=== PATIENT | female | born 1980 ===

== ENCOUNTER 2018-01-22 19:39 | Emergency (ER) | payer OTHER ==
[2018-01-22] MEDS ORDERED: Morphine 4 MG/ML VIAL ONE (20:33)
--- NOTE | 2018-01-22 20:42 | C.PDOC ---
History Of Present Illness 38 year old female with history of biliary colic presents to the ED for evaluation of sudden epigastric pain associated with nausea and vomiting that started 1 hour ago. Reports she is currently breast feeding. Denies fever, trauma, diarrhea, and any other associated symptoms. Time Seen by Provider: 01/22/18 20:15 Chief Complaint (Nursing): Abdominal Pain History Per: Patient History/Exam Limitations: no limitations Onset/Duration Of Symptoms: Hrs Current Symptoms Are (Timing): Still Present Associated Symptoms: Nausea, Vomiting Past Medical History Reviewed: Historical Data, Nursing Documentation, Vital Signs Vital Signs: Last Vital Signs Temp 97.8 F 01/22/18 19:49 Pulse 82 01/22/18 19:49 Resp 18 01/22/18 19:49 BP 132/79 01/22/18 19:49 Pulse Ox 99 01/22/18 19:49 Family History: States: Unknown Family Hx - Social History Hx Alcohol Use: No Hx Substance Use: No - Immunization History Hx Tetanus Toxoid Vaccination: Yes Hx Influenza Vaccination: No Hx Pneumococcal Vaccination: No Review Of Systems Except As Marked, All Systems Reviewed And Found Negative. Constitutional: Negative for: Fever, Chills Gastrointestinal: Positive for: Nausea, Vomiting, Abdominal Pain (epigastric ). Negative for: Diarrhea Physical Exam - Physical Exam Appears: Non-toxic Skin: Normal Color, Warm, Dry Head: Atraumatic, Normacephalic Eye(s): bilateral: PERRL Oral Mucosa: Moist Neck: Normal ROM, Supple Chest: Symmetrical, No Deformity Cardiovascular: Rhythm Regular, No Murmur Respiratory: No Other (no acute respiratory distress) Gastrointestinal/Abdominal: Soft, No Tenderness, No Distention, No Guarding, No Rebound, Other (+Barnhart's Sign. scar is almost completely healed.) Extremity: Normal ROM (x4), No Deformity Neurological/Psych: Oriented x3, Normal Speech, Normal Motor, Normal Sensation Gait: Steady ED Course And Treatment - Laboratory Results Result Diagrams: 01/22/18 20:41 01/22/18 20:54 Lab Interpretation: Abnormal (AST 246, ALT 142, Alk Phos 213, TBili 0.5, Amylase 146H) Urine POC: Negative O2 Sat by Pulse Oximetry: 99 (RA) Pulse Ox Interpretation: Normal Reevaluation Time: 23:54 Reassessment Condition: Improved - Physician Consult Information Outcome Of Conversation: 2300 and 2350: d/w Stamp Classifier, pt with Biliary Colic and Pancreatitis (low grade). declines surgical admission, recommends adm to [facility]. 2400: d/w [facility]- Dr. Jeanette mireles to admit. Medical Decision Making Medical Decision Making: Plan: --Blood sent. --Urinalysis --Urine HCG --Given Morphine and Toradol. biliary colic with LFT's with obstrutive picture, mild pancreatitis. may have passed a stone. consider elective colecystectomy when LFT's normalize Disposition Doctor Will See Patient In The: Hospital Counseled Patient/Family Regarding: Studies Performed, Diagnosis - Disposition Disposition: HOSPITALIZED Disposition Time: 23:56 Condition: GOOD Forms: [email or web address] [facility] (Burkinan) - Clinical Impression Clinical Impression: Abdominal pain, Recurrent biliary colic - Scribe Statement The provider has reviewed the documentation as recorded by the Scribe (Candy Guzman) Provider Attestation: All medical record entries made by the Scribe were at my direction and personally dictated by me. I have reviewed the chart and agree that the record accurately reflects my personal performance of the history, physical exam, medical decision making, and the department course for this patient. I have also personally directed, reviewed, and agree with the discharge instructions and disposition.
[2018-01-22 20:45] LABS: BASO # 0.1 K/uL (0.0-0.2); BASO % 0.7 % (0.0-2.0); EOS # 0.1 K/uL (0.0-0.7); EOS % 0.9 % (0.0-4.0); HEMOGLOBIN 15.1 g/dL (11.0-16.0); LYMPH # 2.1 K/uL (1.0-4.3); LYMPH % 15.9 % (20.0-40.0); MEAN CELL VOLUME 86.9 fL (81.0-99.0); MEAN CORPUSCULAR HEMOGLOBIN 29.5 pg (27.0-31.0); MEAN CORPUSCULAR HGB CONC 33.9 g/dL (33.0-37.0); MONO # 0.5 K/uL (0.0-0.8); NEUT # 10.1 K/uL (1.8-7.0); NEUT % 78.5 % (50.0-75.0); RBC 5.13 Mil/uL (3.80-5.20); RED CELL DISTRIBUTION WIDTH 15.6 % (11.5-14.5); WHITE BLOOD COUNT 12.9 K/uL (4.8-10.8)
[2018-01-22 21:09] LABS: ALB/GLOB RATIO 1.3 (1.0-2.1); ALT/SGPT 142 U/L (9-52); AMYLASE 146 U/L (30-110); AST/SGOT 246 U/L (14-36); BLOOD UREA NITROGEN 21 mg/dL (7-17); CALCIUM 9.4 mg/dl (8.6-10.4); GFR NON-AFRICAN AMERICAN > 60; LIPASE 253 U/L (23-300)
[2018-01-22 23:01] LABS: HCG,QUALITATIVE URINE NEGATIVE (NEGATIVE)
[2018-01-22 23:02] LABS: SQUAMOUS EPITHIAL < 1 /hpf (0-5); URINE BILIRUBIN NEGATIVE (NEGATIVE); URINE CLARITY Clear (Clear); URINE COLOR Yellow (YELLOW); URINE GLUCOSE (UA) NORMAL (Normal); URINE LEUKOCYTE ESTERASE TRACE Leu/uL (Negative); URINE PROTEIN NEGATIVE (NEGATIVE); URINE UROBILINOGEN NORMAL mg/dL (0.2-1.0)
[2018-01-22 23:10] LABS: URINE BLOOD TRACE (NEGATIVE)
[2018-01-22] MEDS ORDERED: Iodixanol 320 MG/ML 100 ML BOTTLE IV ONE (23:14)
[2018-01-23] MEDS: Dextrose 5%/0.45% NS 1,000 ML IV SCH ×2 (00:54→09:40)
[2018-01-23 01:02] VITALS: O2SAT 98
[2018-01-23 03:19] VITALS: RESP 20
--- NOTE | 2018-01-23 08:06 | CT ---
Date of service: 2018-01-22 23:23:40 PROCEDURE: CT Abdomen and Pelvis without intravenous contrast HISTORY: Epigastric pain COMPARISON: Ultrasound dated 01/22/2018. TECHNIQUE: Multiple contiguous axial images were performed through the abdomen and pelvis with the use of intravenous contrast. Subsequently, sagittal and coronal reformatted images were obtained. Radiation dose: Total exam DLP = 236 mGy-cm. This CT exam was performed using one or more of the following dose reduction techniques: Automated exposure control, adjustment of the mA and/or kV according to patient size, and/or use of iterative reconstruction technique. FINDINGS: LOWER THORAX: 6 millimeter calcified granuloma in the right posterior sulcus. LIVER: Unremarkable. No gross lesion or ductal dilatation. GALLBLADDER AND BILE DUCTS: Unremarkable. Cholelithiasis seen on ultrasound was not well appreciated on CT scan. PANCREAS: Unremarkable. No gross lesion or ductal dilatation. Clinical correlation if there is persistent concern for early acute pancreatitis. SPLEEN: Unremarkable. Splenule. ADRENALS: Unremarkable. No mass. KIDNEYS AND URETERS: Unremarkable. No hydronephrosis. No solid mass. VASCULATURE: Unremarkable. No aortic aneurysm. BOWEL: Unremarkable. No obstruction. No gross mural thickening. APPENDIX: No findings to suggest acute appendicitis. PERITONEUM: Unremarkable. No free fluid. No free air. LYMPH NODES: Unremarkable. No enlarged lymph nodes. BLADDER: Unremarkable. REPRODUCTIVE: Heterogeneous uterus and endometrium. BONES: Degenerative changes in the spine. OTHER FINDINGS: None. IMPRESSION: Negative acute. Additional findings as above. These findings were preliminarily reported at 11:44 p.m. on 01/22/[address] Durga Henry from [facility].
[2018-01-23 08:21] LABS: BASO # 0.1 K/uL (0.0-0.2); BASO % 0.7 % (0.0-2.0); EOS # 0.3 K/uL (0.0-0.7); EOS % 4.1 % (0.0-4.0); HEMOGLOBIN 14.5 g/dL (11.0-16.0); LYMPH # 2.7 K/uL (1.0-4.3); LYMPH % 35.2 % (20.0-40.0); MEAN CORPUSCULAR HEMOGLOBIN 29.4 pg (27.0-31.0); MEAN CORPUSCULAR HGB CONC 33.4 g/dL (33.0-37.0); MEAN PLATELET VOLUME 10.4 fL (7.2-11.7); MONO # 0.4 K/uL (0.0-0.8); MONO % 5.6 % (0.0-10.0); NEUT # 4.1 K/uL (1.8-7.0); NEUT % 54.4 % (50.0-75.0); NRBC % 0.1 % (0.0-2.0); RBC 4.93 Mil/uL (3.80-5.20); WHITE BLOOD COUNT 7.6 K/uL (4.8-10.8)
[2018-01-23 08:32] VITALS: BP 119/82; PULSE 60; TEMP 97.4
[2018-01-23 08:33] LABS: ALB/GLOB RATIO 1.2 (1.0-2.1); ALBUMIN 3.7 g/dL (3.5-5.0); ALT/SGPT 192 U/L (9-52); AST/SGOT 147 U/L (14-36); BILIRUBIN,DIRECT 0.3 mg/dL (0.0-0.4); BLOOD UREA NITROGEN 16 mg/dL (7-17); CALCIUM 9.2 mg/dl (8.6-10.4); GFR NON-AFRICAN AMERICAN > 60; HDL CHOLESTEROL 51 mg/dL (30-70)
[2018-01-23 08:43] LABS: LDL CHOLESTEROL 147 mg/dL (0-129)
--- NOTE | 2018-01-23 10:35 | US ---
Date of service: 01/22/2018 HISTORY: epigastric pain, ? GB stones, h/o gall stones COMPARISON: CT abdomen pelvis with contrast performed 01/22/18 TECHNIQUE: Sonographic evaluation of the right upper quadrant of the abdomen. FINDINGS: LIVER: Measures 15.2 cm in length and appears within normal limits. No focal hepatic mass identified. The main portal vein appears patent with normal directional flow. No intrahepatic bile duct dilatation. GALLBLADDER: Gallstones. No gallbladder wall thickening or pericholecystic edema. Negative sonographic Barnhart's sign as assessed by the yoga coordinator. COMMON BILE DUCT: Measures 4 mm. PANCREAS: Not well-visualized. RIGHT KIDNEY: Measures 9.4 x 4.0 x 4.1 cm. No obstructing calculus or hydronephrosis identified. AORTA: Limited visualization appears grossly unremarkable. IVC: Limited visualization appears grossly unremarkable. OTHER FINDINGS: None . IMPRESSION: Cholelithiasis. Preliminary impression was provided by [email or web address].
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
--- NOTE | 2018-01-23 14:01 | CP.PCM.DIS ---
Provider - Provider Date of Admission: 01/23/18 00:25 Attending physician: Gordon Naik MD Time Spent in preparation of Discharge (in minutes): 35 Hospital Course - Lab Results Lab Results: Most Recent Lab Values WBC 7.6 K/uL (4.8-10.8) 01/23/18 08:01 RBC 4.93 Mil/uL (3.80-5.20) 01/23/18 08:01 Hgb 14.5 g/dL (11.0-16.0) 01/23/18 08:01 Hct 43.4 % (34.0-47.0) 01/23/18 08:01 MCV 88.0 fL (81.0-99.0) 01/23/18 08:01 MCH 29.4 pg (27.0-31.0) 01/23/18 08:01 MCHC 33.4 g/dL (33.0-37.0) 01/23/18 08:01 RDW 16.0 % (11.5-14.5) H 01/23/18 08:01 Plt Count 225 K/uL (130-400) 01/23/18 08:01 MPV 10.4 fL (7.2-11.7) 01/23/18 08:01 Neut % (Auto) 54.4 % (50.0-75.0) 01/23/18 08:01 Lymph % (Auto) 35.2 % (20.0-40.0) 01/23/18 08:01 [place] % (Auto) 5.6 % (0.0-10.0) 01/23/18 08:01 Eos % (Auto) 4.1 % (0.0-4.0) H 01/23/18 08:01 Baso % (Auto) 0.7 % (0.0-2.0) 01/23/18 08:01 Neut # (Auto) 4.1 K/uL (1.8-7.0) 01/23/18 08:01 Lymph # (Auto) 2.7 K/uL (1.0-4.3) 01/23/18 08:01 [place] # (Auto) 0.4 K/uL (0.0-0.8) 01/23/18 08:01 Eos # (Auto) 0.3 K/uL (0.0-0.7) 01/23/18 08:01 Baso # (Auto) 0.1 K/uL (0.0-0.2) 01/23/18 08:01 Sodium 140 mmol/L (132-148) 01/23/18 08:01 Potassium 4.4 mmol/L (3.6-5.2) 01/23/18 08:01 Chloride 104 mmol/L (98-107) 01/23/18 08:01 Carbon Dioxide 25 mmol/L (22-30) 01/23/18 08:01 Anion Gap 15 (10-20) 01/23/18 08:01 BUN 16 mg/dL (7-17) 01/23/18 08:01 Creatinine 0.7 mg/dL (0.7-1.2) 01/23/18 08:01 Est GFR ( Amer) > 60 01/23/18 08:01 Est GFR (Non-Af Amer) > 60 01/23/18 08:01 Random Glucose 88 mg/dL (65-105) 01/23/18 08:01 Calcium 9.2 mg/dl (8.6-10.4) 01/23/18 08:01 Total Bilirubin 0.4 mg/dL (0.2-1.3) 01/23/18 08:01 Direct Bilirubin 0.3 mg/dL (0.0-0.4) 01/23/18 08:01 AST 147 U/L (14-36) H D 01/23/18 08:01 ALT 192 U/L (9-52) H D 01/23/18 08:01 Alkaline Phosphatase 213 U/L (38-126) H 01/23/18 08:01 Total Protein 6.8 g/dL (6.3-8.3) 01/23/18 08:01 Albumin 3.7 g/dL (3.5-5.0) 01/23/18 08:01 Globulin 3.1 gm/dL (2.2-3.9) 01/23/18 08:01 Albumin/Globulin Ratio 1.2 (1.0-2.1) 01/23/18 08:01 Triglycerides 122 mg/dL (0-149) 01/23/18 08:01 Cholesterol 253 mg/dL (0-199) H 01/23/18 08:01 LDL Cholesterol Direct 147 mg/dL (0-129) H 01/23/18 08:01 HDL Cholesterol 51 mg/dL (30-70) 01/23/18 08:01 Amylase 146 U/L (30-110) H 01/22/18 20:54 Lipase 253 U/L (23-300) 01/22/18 20:54 Urine Color Yellow (YELLOW) 01/22/18 22:56 Urine Clarity Clear (Clear) 01/22/18 22:56 Urine pH 6.0 (5.0-8.0) 01/22/18 22:56 Ur Specific [place] 1.021 (1.003-1.030) 01/22/18 22:56 Urine Protein Negative mg/dL (NEGATIVE) 01/22/18 22:56 Urine Glucose (UA) Normal mg/dL (Normal) 01/22/18 22:56 Urine Ketones Negative mg/dL (NEGATIVE) 01/22/18 22:56 Urine Blood Trace (NEGATIVE) H 01/22/18 22:56 Urine Nitrate Negative (NEGATIVE) 01/22/18 22:56 Urine Bilirubin Negative (NEGATIVE) 01/22/18 22:56 Urine Urobilinogen Normal mg/dL (0.2-1.0) 01/22/18 22:56 Ur Leukocyte Esterase Trace [place]/uL (Negative) 01/22/18 22:56 Urine WBC (Auto) 2 /hpf (0-5) 01/22/18 22:56 Urine RBC (Auto) 1 /hpf (0-3) 01/22/18 22:56 Ur Squamous Epith Cells < 1 /hpf (0-5) 01/22/18 22:56 Urine HCG, Qual Negative (NEGATIVE) 01/22/18 22:56 - Hospital Course Hospital Course: 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 Workup in the ER showed normal CAT scan of the abdomen and ultrasound of the abdomen was reported to have gallstones without any acute inflammation. Patient has no other previous history there is no fever or chills upper or lower GI bleeding. Vital signs are stable Physical examination heart lung and normal. Nose and throat is normal. Abdomen is soft there is tenderness in the right upper quadrant no guarding bowel sounds are normal stool occult is negative. Assessment Acute biliary colic rule out stone in the cystic duct. Plan We will obtain a HIDA scan in the morning continue clear liquids IV fluids and pain managemen after the IV fluids and pain management patient has no further nausea vomiting or pain. Before any further test could be done patient signed out AGAINST MEDICAL ADVICE. Patient was given instructions to follow in my office for further evaluation and treatment Discharge Plan - Follow Up Plan Condition: GOOD Disposition: AGAINST MEDICAL ADVICE
[2018-01-24] MEDS ORDERED: Pneumococcal 23-Valent Vaccine IM ONE (10:00)
== END 2018-01-23 12:58 | disposition left against medical advice (07) ==
LOC: C.ER 19:39 → C.3T 01-23 00:25 → UNDOADMIN 01-23 00:25 → UNDODISIN 01-23 12:58 → C.ER 01-23 12:58
DX: R10.13 Epigastric pain (principal); K80.50 Calculus of bile duct without cholangitis or cholecystitis without obstruction
CPT/HCPCS: 36415; 74177; 76705; 80053; 80061; 81001; 82150; 82248; 83690; 84703; 85025; 87040; 96374; 96375; 99285; J1885; J2270; J7042; Q9967